=== PATIENT | female | born 1995 | race Caucasian/White ===

== ENCOUNTER 2017-02-26 07:58 | Emergency (ER) | payer BC, MEDICAID ==
--- NOTE | 2017-02-26 08:54 | ER Document Report ---
ED GI/ - General Chief Complaint: Vomiting Stated Complaint: BLOOD SUGAR PROBLEM Time Seen by Provider: 02/26/17 08:53 Mode of Arrival: Ambulatory Information source: Patient Notes: 21 yo Type I female with vomiiting since 0200. Was worried that she was borderline DKA. Dry lips, weak, heart racing, headache, generalized. aching, thirstyl. Nauseated. Uses insulin pump. Accucheck 127 in ER. Irregular menses , 2 weeks ago, nexplanon. TRAVEL OUTSIDE OF THE [place] IN LAST 30 DAYS: No - Related Data Allergies/Adverse Reactions: morphine [Morphine] Allergy (Unknown, Verified 02/26/17 08:07) Influenza Virus Vaccines [Influenza Virus Vaccine] Adverse Reaction (Verified 08:07) Past Medical History - General Information source: Patient - Social History Smoking Status: Never Smoker Frequency of alcohol use: None Drug Abuse: None Lives with: Family Family History: Reviewed & Not Pertinent Patient has suicidal ideation: No Patient has homicidal ideation: No Endocrine Medical History: Reports: Hx Diabetes Mellitus Type 1 Renal/ Medical History: Denies: Hx Peritoneal Dialysis Surgical Hx: Negative - Immunizations Immunizations up to date: Yes Review of Systems - Review of Systems Constitutional: See HPI EENT: No symptoms reported Cardiovascular: No symptoms reported Respiratory: No symptoms reported Gastrointestinal: No symptoms reported Genitourinary: No symptoms reported Female Genitourinary: No symptoms reported Musculoskeletal: No symptoms reported Skin: No symptoms reported Hematologic/Lymphatic: No symptoms reported Neurological/Psychological: No symptoms reported Physical Exam - Vital signs Vitals: Temp Pulse Resp BP Pulse Ox 97.8 F 114 H 18 116/64 98 02/26/17 08:05 02/26/17 08:05 02/26/17 08:05 02/26/17 08:05 02/26/17 08:05 Interpretation: Normal - General General appearance: Alert In distress: None Notes: looks dry - HEENT Head: Normocephalic, Atraumatic Eyes: Normal Conjunctiva: Normal Pupils: PERRL Mucous membranes: Dry Neck: Supple. No: Lymphadenopathy - Respiratory Respiratory status: No respiratory distress Chest status: Nontender Breath sounds: Normal Chest palpation: Normal - Cardiovascular Rhythm: Regular Heart sounds: Normal auscultation Murmur: No - Abdominal Inspection: Normal Distension: No distension Bowel sounds: Normal Tenderness: Nontender. No: Tender Organomegaly: No organomegaly - Back Back: Normal, Nontender. No: Tender - Extremities General upper extremity: Normal inspection, Nontender, Normal color, Normal ROM , Normal temperature General lower extremity: Normal inspection, Nontender, Normal color, Normal ROM , Normal temperature, Normal weight bearing. No: Roshan's sign - Neurological Neuro grossly intact: Yes Cognition: Normal Orientation: AAOx4 [place] Coma Scale Eye Opening: Spontaneous [place] Coma Scale Verbal: Oriented [place] Coma Scale Motor: Obeys Commands Donovan Coma Scale Total: 15 Speech: Normal Motor strength normal: LUE, RUE, LLE, RLE Sensory: Normal - Psychological Associated symptoms: Normal affect, Normal mood - Skin Skin Temperature: Warm Skin Moisture: Dry Skin Color: Normal Skin irregularity: negative: Rash Course - Re-evaluation Re-evalutation: 02/26/17 10:15 Lab work does not show DKA. Patient feels and looks better after 1 L of fluid. - Vital Signs Vital signs: Temp Pulse Resp BP Pulse Ox 98.0 F 114 H 15 100/60 97 02/26/17 11:16 02/26/17 08:05 02/26/17 11:16 02/26/17 11:17 02/26/17 11:16 - Laboratory Result Diagrams: 02/26/17 09:25 02/26/17 09:25 Laboratory results interpreted by me: 02/26/17 02/26/17 02/26/17 08:13 09:25 09:25 Seg Neutrophils % 88.1 H Lymphocytes % 6.8 L Absolute Neutrophils 8.8 H Glucose 130 H POC Glucose 127 H Discharge - Discharge Clinical Impression: daibetes Vomiting Qualifiers: Vomiting type: unspecified Vomiting Intractability: non-intractable Nausea presence: with nausea Qualified Code(s): R11.2 - Nausea with vomiting, unspecified Condition: Good Disposition: HOME, SELF-CARE Instructions: Antinausea Medication ([facility]), Diarrhea, Nonspecific ([facility]), Intravenous (IV) Fluids ([facility]), Vomiting ([facility]) Additional Instructions: plenty of fluids watch your glucose closely today to er if worse Please complete the patient satisfaction survey if you get one, and return it.. If you do not receive a survey, then you can go to the [facility] website, [email or web address] and place your comments about your very good care. Thank you very much. It was a pleasure being your medical provider today. Prescriptions: Ondansetron HCl [Zofran 4 mg Tablet] 1 - 2 tab PO Q4H PRN #30 tablet PRN Reason: Forms: Return to Work
[2017-02-26] MEDS ORDERED: NORMAL SALINE 1000 ML 2,000 ML IV ONE (08:58)
[2017-02-26] MEDS ORDERED: ACETAMINOPHEN 325 MG TABLET PO ONE (09:02)
[2017-02-26] MEDS ORDERED: ONDANSETRON 4 MG TAB.RAPDIS PO ONE (09:02)
[2017-02-26 09:37] LABS: ABSOLUTE LYMPHOCYTES (AUTO) 0.7 10^3/uL (0.5-4.7); ABSOLUTE MONOCYTES (AUTO) 0.5 10^3/uL (0.1-1.4); ABSOLUTE NEUT (AUTO) 8.8 10^3/uL (1.7-8.2); BASOPHILS % (AUTO) 0.3 % (0-2); EOSINOPHILS % (AUTO) 0.1 % (0-6); HEMATOCRIT 39.7 % (36.0-47.0); HEMOGLOBIN 13.8 g/dL (12.0-15.5); HGB HCT DIFFERENCE 1.7; LYMPHOCYTES % (AUTO) 6.8 % (13-45); MEAN CORPUSCULAR HEMOGLOBIN 29.7 pg (27.0-33.4); MEAN CORPUSCULAR HGB CONC 34.8 g/dL (32.0-36.0); MEAN CORPUSCULAR VOLUME 86 fl (80-97); MONOCYTES % (AUTO) 4.7 % (3-13); RED BLOOD COUNT 4.65 10^6/uL (3.72-5.28); RED CELL DISTRIBUTION WIDTH 12.5 % (11.5-14.0); SEGMENTED NEUTROPHILS % (AUTO) 88.1 % (42-78)
[2017-02-26 09:39] LABS: VENOUS BLOOD BASE EXCESS 0.1 mmol/L; VENOUS BLOOD HCO3 25.9 mmol/L (20-32); VENOUS BLOOD PCO2 46.4 mmHg (35-63); VENOUS BLOOD PH 7.37 (7.30-7.42)
[2017-02-26 10:00] LABS: ALANINE AMINOTRANSFERASE 31 U/L (9-52); ALBUMIN 3.9 g/dL (3.5-5.0); ALKALINE PHOSPHATASE 73 U/L (38-126); ANION GAP 12 (5-19); ASPARTATE AMINO TRANSFERASE 22 U/L (14-36); BILIRUBIN,DIRECT 0.3 mg/dL (0.0-0.4); BLOOD UREA NITROGEN 14 mg/dL (7-20); CALCIUM 9.2 mg/dL (8.4-10.2); CARBON DIOXIDE 28 mmol/L (22-30); CHLORIDE 102 mmol/L (98-107); CREATININE RESULT 0.62 mg/dL (0.52-1.25); GLUCOSE 130 mg/dL (75-110); POTASSIUM 3.9 mmol/L (3.6-5.0); SODIUM 141.7 mmol/L (137-145)
[2017-02-26 11:24] VITALS: BP 100/60
== END 2017-02-26 11:24 | disposition home or self-care (01) ==
LOC: ER 07:58
DX: E11.65 Type 2 diabetes mellitus with hyperglycemia (principal); R11.2 Nausea with vomiting, unspecified; R51 Headache; M79.1 Myalgia
CPT/HCPCS: 99284; 36415; 82962; 85025; 80053; 82803; S0119; J7030

== ENCOUNTER 2017-03-09 22:22 | Emergency (ER) | payer BC, MEDICAID ==
[2017-03-09 22:45] VITALS: BP 129/79
--- NOTE | 2017-03-09 23:49 | ER Document Report ---
ED Extremity Problem, Lower <CATIE MTZ - Last Filed: 03/10/17 00:05> - General Mode of Arrival: Wheelchair Information source: Patient, Relative TRAVEL OUTSIDE OF THE [place] IN LAST 30 DAYS: No <BRIANNA THOMPSON - Last Filed: 03/10/17 00:16> - General Chief Complaint: Fall Injury Stated Complaint: FALL INJURY Time Seen by Provider: 03/09/17 23:37 Notes: Patient is a 21 year old female presenting to the emergency department for an injury to her left lower extremity. Patient was walking up some stairs when she slipped because the stairs had green slime on them. Patient's left leg went in between the step and she hit her alvarado on the front of the step. Patient does not have any regular medications. (BRIANNA THOMPSON) - Related Data Allergies/Adverse Reactions: morphine [Morphine] Allergy (Unknown, Verified 03/09/17 22:43) Influenza Virus Vaccines [Influenza Virus Vaccine] Adverse Reaction (Verified 22:43) Past Medical History - General Information source: Patient - Social History Smoking Status: Never Smoker Cigarette use (# per day): No Chew tobacco use (# tins/day): No Smoking Education Provided: No Frequency of alcohol use: None Drug Abuse: None Family History: None Patient has suicidal ideation: No Patient has homicidal ideation: No Endocrine Medical History: Reports: Hx Diabetes Mellitus Type 1 Surgical Hx: Negative - Immunizations Immunizations up to date: Yes <BRIANNA THOMPSON - Last Filed: 03/10/17 00:16> Review of Systems - Review of Systems Constitutional: No symptoms reported EENT: No symptoms reported Cardiovascular: No symptoms reported Respiratory: No symptoms reported Gastrointestinal: No symptoms reported Genitourinary: No symptoms reported Female Genitourinary: No symptoms reported Musculoskeletal: See HPI Skin: See HPI Hematologic/Lymphatic: No symptoms reported Neurological/Psychological: No symptoms reported -: Yes All other systems reviewed and negative <BRIANNA THOMPSON - Last Filed: 03/10/17 00:16> Physical Exam - Extremities General lower extremity: Other - Left anterior lower leg as a area that appears to possibly be contused in the mid pretibial region which is tender without disruption of the skin. <CATIE MTZ - Last Filed: 03/10/17 00:05> - Vital signs Interpretation: Normal - General General appearance: Appears well, Alert In distress: Mild - HEENT Head: Normocephalic, Atraumatic Eyes: Normal Conjunctiva: Normal Pupils: PERRL Mucous membranes: Moist - Respiratory Respiratory status: No respiratory distress - Cardiovascular Rhythm: Regular - Abdominal Distension: No distension - Extremities General upper extremity: Normal inspection, Normal ROM, Normal strength - Neurological Neuro grossly intact: Yes Cognition: Normal Orientation: AAOx4 [place] Coma Scale Eye Opening: Spontaneous [place] Coma Scale Verbal: Oriented [place] Coma Scale Motor: Obeys Commands [place] Coma Scale Total: 15 Speech: Normal Sensory: Normal - Psychological Associated symptoms: Normal affect, Normal mood - Skin Skin Temperature: Warm Skin Moisture: Dry <BRIANNA THOMPSON - Last Filed: 03/10/17 00:16> - Vital signs Vitals: Temp Pulse Resp BP Pulse Ox 97.8 F 82 18 129/79 H 99 03/09/17 22:43 03/09/17 22:43 03/09/17 22:43 03/09/17 22:43 03/09/17 22:43 Course - Diagnostic Test Radiology reviewed: Image reviewed <CATIE MTZ - Last Filed: 03/10/17 00:05> - Vital Signs Vital signs: Temp Pulse Resp BP Pulse Ox 97.8 F 82 18 129/79 H 99 03/09/17 22:43 03/09/17 22:43 03/09/17 22:43 03/09/17 22:43 03/09/17 22:43 Discharge <CATIE MTZ - Last Filed: 03/10/17 00:05> <BRIANNA THOMPSON - Last Filed: 03/10/17 00:16> - Discharge Clinical Impression: Contusion of leg, left Qualifiers: Encounter type: initial encounter Qualified Code(s): S80.12XA - Contusion of left lower leg, initial encounter Additional Instructions: Contusion: Your injury has resulted in a contusion -- a crushing of the deep tissues. No injury to important structures was detected during the physician's exam. Contusions vary in the amount of pain they cause, and in the length of time required for healing. Typically, the area will become bruised, and will remain painful to touch for two or three weeks. However, most patients are back to working and playing within a few days. After the initial period of rest and cold-packs, your symptoms (together with the doctor's recommendations) will determine how rapidly you can get back to full activity. Usually this means "do what feels okay, but don't do things that hurt." If re-examination was recommended, it's important to follow up as instructed. Call the doctor or return any time if pain increases, if swelling becomes severe, if you develop numbness or weakness in an injured extremity, or if any other alarming symptoms occur. Elevate the leg as much as possible. Use ice packs tonight to reduce swelling. Take the pain medication is dispensed a night if needed. Follow-up with your doctor tomorrow if any problems. Referrals: JOSEPHINE CASANOVA NP [Primary Care Provider] - Follow up as needed Scribe Attestation: 03/10/17 00:06 I personally performed the services described in the documentation, reviewed and edited the documentation which was dictated to the scribe in my presence, and it accurately records my words and actions. (CATIE MTZ) Scribe Documentation - Scribe Written by Renaldo:: Renaldo Carreno 03/10/2017 00:16 acting as scribe for :: Kaylah <BRIANNA THOMPSON - Last Filed: 03/10/17 00:16>
--- NOTE | 2017-03-10 00:05 | RADIOLOGY REPORT (SQ) ---
EXAM DESCRIPTION: TIBIA FIBULA LEFT COMPLETED DATE/TIME: 03/09/2017 11:56 pm REASON FOR STUDY: fall injury COMPARISON: None. NUMBER OF VIEWS: Two views. 5 images. TECHNIQUE: Two radiographic images acquired of the left tibia and fibula to include the knee and ank le in at least one projection. LIMITATIONS: None. FINDINGS: MINERALIZATION: Normal. BONES: No acute fracture or dislocation. No worrisome bone lesions. SOFT TISSUES: No obvious swelling or foreign body. OTHER: No other significant finding. IMPRESSION: NEGATIVE STUDY OF THE LEFT TIBIA AND FIBULA. NO RADIOGRAPHIC EVIDENCE OF ACUTE INJURY. TECHNICAL DOCUMENTATION: JOB ID: [id number] [employer]- All Rights Reserved
[2017-03-10] MEDS ORDERED: HYDROCODONE/ACETAMINOPHEN 5-325 MG 6 TAB/DSPK PO PRN (00:06)
== END 2017-03-10 00:21 | disposition home or self-care (01) ==
LOC: ER 22:22
DX: S80.12XA Contusion of left lower leg, initial encounter (principal); M79.605 Pain in left leg; W01.0XXA Fall on same level from slipping, tripping and stumbling without subsequent striking against object, initial encounter
CPT/HCPCS: 99283

== ENCOUNTER 2017-06-02 08:16 | Emergency (ER) | payer BC, MEDICAID ==
[2017-06-02] MEDS ORDERED: PROMETHAZINE HCL 25 MG TABLET PO ONE (08:56)
--- NOTE | 2017-06-02 08:59 | ER Document Report ---
ED General - General Chief Complaint: Weakness Stated Complaint: VOMITING WEAKNESS POSSIBLE DKA Time Seen by Provider: 06/02/17 08:29 Mode of Arrival: Ambulatory Information source: Patient Notes: 21 yr old female hx of diabetes last in [facility] in october presents with complaints of high blood sugar, heart racing , nausea and headache. pt ednies any fevers or chills. pt notes her insulin pump ran out of insulin last night and she slept through the alarm , awoke this morning and noted blood sugar at 450 and gave herself 10 units bolus. TRAVEL OUTSIDE OF THE [place] IN LAST 30 DAYS: No - HPI Onset: Just prior to arrival Onset/Duration: Sudden Quality of pain: Achy Severity: Mild Pain Level: Denies Associated symptoms: Body/muscle aches, Nausea Exacerbated by: Denies Relieved by: Denies Similar symptoms previously: Yes Recently seen / treated by doctor: Yes - Related Data Allergies/Adverse Reactions: morphine [Morphine] Allergy (Unknown, Verified 06/02/17 08:19) cefazolin Allergy (Verified 06/02/17 08:19) Influenza Virus Vaccines [Influenza Virus Vaccine] Adverse Reaction (Verified 08:19) Past Medical History - Social History Smoking Status: Never Smoker Cigarette use (# per day): No Chew tobacco use (# tins/day): No Smoking Education Provided: No Family History: None Endocrine Medical History: Reports: Hx Diabetes Mellitus Type 1 Renal/ Medical History: Denies: Hx Peritoneal Dialysis - Immunizations Immunizations up to date: Yes Review of Systems - Review of Systems Notes: REVIEW OF SYSTEMS: CONSTITUTIONAL : Denies fever, chills, or sweats. Denies recent illness. EENT: Denies eye, ear, throat, or mouth pain or symptoms. Denies nasal or sinus congestion or discharge. Denies throat, tongue, or mouth swelling or difficulty swallowing. CARDIOVASCULAR: Denies chest pain. Denies palpitations or racing or irregular heart beat. Denies ankle edema. RESPIRATORY: Denies cough, cold, or chest congestion. Denies shortness of breath, difficulty breathing, or wheezing. GASTROINTESTINAL: Admits to nausea GENITOURINARY: Denies difficulty urinating, painful urination, burning, frequency, blood in urine, or discharge. FEMALE GENITOURINARY: Denies vaginal bleeding, heavy or abnormal periods, irregular periods. Denies vaginal discharge or odor. MUSCULOSKELETAL: Denies back or neck pain or stiffness. Denies joint pain or swelling. SKIN: Denies rash, lesions or sores. HEMATOLOGIC : Denies easy bruising or bleeding. LYMPHATIC: Denies swollen, enlarged glands. NEUROLOGICAL: Admits to headache PSYCHIATRIC: Denies anxiety or stress. Denies depression, suicidal ideation, or homicidal ideation. ALL OTHER SYSTEMS REVIEWED AND NEGATIVE. PHYSICAL EXAMINATION: GENERAL: Well-appearing, well-nourished and in no acute distress. HEAD: Atraumatic, normocephalic. EYES: Pupils equal round and reactive to light, extraocular movements intact, conjunctiva are normal. ENT: Nares patent, oropharynx clear without exudates. Moist mucous membranes. NECK: Normal range of motion, supple without lymphadenopathy LUNGS: Breath sounds clear to auscultation bilaterally and equal. No wheezes rales or rhonchi. HEART: Regular rate and rhythm without murmurs ABDOMEN: Soft, nontender, nondistended abdomen. No guarding, no rebound. No masses appreciated. Female : deferred Musculoskeletal: Normal range of motion, no pitting or edema. No cyanosis. NEUROLOGICAL: Cranial nerves grossly intact. Normal speech, normal gait. Normal sensory, motor exams PSYCH: Normal mood, normal affect. SKIN: Warm, Dry, normal turgor, no rashes or lesions noted. Dictation was performed using [employer] voice recognition software Physical Exam - Vital signs Vitals: Temp Resp BP 97.9 F 16 113/67 06/02/17 08:24 06/02/17 08:24 06/02/17 08:24 Course - Re-evaluation Re-evalutation: 06/02/17 08:58 Patient's blood sugar reevaluation is 250 here, lab work to rule out DKA has been ordered patient will receive fluids 06/02/17 10:19 pt has no signs of dka, she will be given fluids is otherwise very well appearing in no distress and will dc home with close follow up After performing a Medical Screening Examination, I estimate there is LOW risk for ACUTE CORONARY SYNDROME, PULMONARY EMBOLI, RESPIRATORY FAILURE, SEPSIS OR MENINGITIS, thus I consider the discharge disposition reasonable. I have reevaluated this patient multiple times and no significant life threatening changes are noted. The patient and I have discussed the diagnosis and risks, and we agree with discharging home with close follow-up. We also discussed returning to the Emergency Department immediately if new or worsening symptoms occur. We have discussed the symptoms which are most concerning (e.g., changing or worsening pain, trouble swallowing or breathing, neck stiffness, fever) that necessitate immediate return. - Vital Signs Vital signs: Temp Pulse Resp BP Pulse Ox 97.9 F 109 H 14 111/70 99 06/02/17 08:24 06/02/17 08:25 06/02/17 09:17 06/02/17 09:17 06/02/17 09:17 - Laboratory Result Diagrams: 06/02/17 09:11 06/02/17 09:11 Laboratory results interpreted by me: 06/02/17 06/02/17 06/02/17 08:54 09:11 09:11 WBC 12.1 H Absolute Neutrophils 9.4 H Glucose 264 H POC Glucose 275 H Discharge - Discharge Clinical Impression: Hyperglycemia, Nausea Condition: Stable Disposition: HOME, SELF-CARE Instructions: Hyperglycemia ([facility]) Additional Instructions: Follow up with your physician tomorrow for further care or return to the ED IMMEDIATELY if symptoms worsen or new concerns occur. If you cannot afford to follow up with your primary care physician a list of low cost clinics have been provided at the end of your discharge papers as well.
[2017-06-02] MEDS: NORMAL SALINE 1000 ML 1,000 ML IV PRN ×2 (09:19→10:22)
[2017-06-02 09:30] LABS: ABSOLUTE BASOPHILS # (AUTO) 0.1 10^3/uL (0.0-0.2); ABSOLUTE EOSINOPHILS # (AUTO) 0.1 10^3/uL (0.0-0.6); ABSOLUTE MONOCYTES (AUTO) 0.6 10^3/uL (0.1-1.4); ABSOLUTE NEUT (AUTO) 9.4 10^3/uL (1.7-8.2); BASOPHILS % (AUTO) 0.6 % (0-2); EOSINOPHILS % (AUTO) 0.9 % (0-6); HEMATOCRIT 39.8 % (36.0-47.0); HEMOGLOBIN 13.8 g/dL (12.0-15.5); HGB HCT DIFFERENCE 1.6; LYMPHOCYTES % (AUTO) 16.6 % (13-45); MEAN CORPUSCULAR HEMOGLOBIN 29.4 pg (27.0-33.4); MEAN CORPUSCULAR HGB CONC 34.7 g/dL (32.0-36.0); MEAN CORPUSCULAR VOLUME 85 fl (80-97); MONOCYTES % (AUTO) 4.6 % (3-13); RED BLOOD COUNT 4.69 10^6/uL (3.72-5.28); RED CELL DISTRIBUTION WIDTH 12.8 % (11.5-14.0); SEGMENTED NEUTROPHILS % (AUTO) 77.3 % (42-78); WHITE BLOOD COUNT 12.1 10^3/uL (4.0-10.5)
[2017-06-02 09:43] LABS: VENOUS BLOOD BASE EXCESS -0.8 mmol/L; VENOUS BLOOD HCO3 24.7 mmol/L (20-32); VENOUS BLOOD PCO2 44.2 mmHg (35-63); VENOUS BLOOD PH 7.37 (7.30-7.42)
[2017-06-02 09:54] LABS: ALANINE AMINOTRANSFERASE 31 U/L (9-52); ALBUMIN 4.4 g/dL (3.5-5.0); ALKALINE PHOSPHATASE 73 U/L (38-126); ANION GAP 15 (5-19); ASPARTATE AMINO TRANSFERASE 21 U/L (14-36); BILIRUBIN,DIRECT 0.3 mg/dL (0.0-0.4); BILIRUBIN,TOTAL 0.7 mg/dL (0.2-1.3); BLOOD UREA NITROGEN 18 mg/dL (7-20); CALCIUM 9.6 mg/dL (8.4-10.2); CARBON DIOXIDE 23 mmol/L (22-30); CHLORIDE 101 mmol/L (98-107); GLUCOSE 264 mg/dL (75-110); POTASSIUM 4.1 mmol/L (3.6-5.0); TOTAL PROTEIN 7.4 g/dL (6.3-8.2)
[2017-06-02 10:53] LABS: APPEARANCE,URINE SLIGHTLY-CLOUDY; BILIRUBIN,URINE NEGATIVE (NEGATIVE); GLUCOSE, URINE >=500 mg/dL (NEGATIVE); KETONES,URINE 80 mg/dL (NEGATIVE); LEUKOCYTE ESTERASE,URINE TRACE (NEGATIVE); NITRITE,URINE NEGATIVE (NEGATIVE); PROTEIN,URINE NEGATIVE (NEGATIVE); URINE SPECIFIC GRAVITY 1.024; UROBILINOGEN,URINE NEGATIVE mg/dL (<2.0)
[2017-06-02 11:22] VITALS: BP 102/58
== END 2017-06-02 11:32 | disposition home or self-care (01) ==
LOC: ER 08:16
DX: R53.1 Weakness (principal); R11.10 Vomiting, unspecified; M79.1 Myalgia; Z46.81 Encounter for fitting and adjustment of insulin pump; Z88.6 Allergy status to analgesic agent; Z88.7 Allergy status to serum and vaccine
CPT/HCPCS: 99285; 96360; 96361; 36415; 82962; 85025; 80053; 81001; 82803; J7030

== ENCOUNTER 2017-08-17 13:14 | Emergency (ER) | payer BC, MEDICAID ==
[2017-08-17] MEDS ORDERED: NORMAL SALINE 1000 ML 1,000 ML IV ONE ×2 (14:23→14:36)
--- NOTE | 2017-08-17 14:24 | ER Document Report ---
ED Blood Sugar Problem - General Chief Complaint: High Blood Sugar Stated Complaint: DIZZY,NAUSEA,ELEVATED BLOOD SUGAR Time Seen by Provider: 08/17/17 14:23 Notes: The patient is a 21-year-old female, past medical history type 1 diabetes, presents after her blood sugars over the past 2 day have remained "HI". She has an insulin pump and is having troubles with fluctuations between hyperglycemia and hypoglycemia. Her doctor of naprapathy is in [facility]. Patient changed the location of her insulin pump yesterday. She is having nausea and a dull frontal headache and mild dysuria. Denies fevers, vomiting, abdominal pain, neck stiffness, chest pain, shortness of breath or headache. TRAVEL OUTSIDE OF THE [place] IN LAST 30 DAYS: No - Related Data Allergies/Adverse Reactions: morphine [Morphine] Allergy (Unknown, Verified 08/17/17 13:15) cefazolin Allergy (Verified 08/17/17 13:15) Influenza Virus Vaccines [Influenza Virus Vaccine] Adverse Reaction (Verified 13:15) Past Medical History - General Information source: Patient - Social History Smoking Status: Unknown if Ever Smoked Family History: None Endocrine Medical History: Reports: Hx Diabetes Mellitus Type 1 Renal/ Medical History: Denies: Hx Peritoneal Dialysis - Immunizations Immunizations up to date: Yes Review of Systems - Review of Systems Notes: REVIEW OF SYSTEMS: CONSTITUTIONAL: -fevers, -chills EENT: -eye pain, -difficulty swallowing, -nasal congestion CARDIOVASCULAR: -chest pain, -syncope. RESPIRATORY: -cough, -SOB GASTROINTESTINAL: -abdominal pain, +nausea, -vomiting, -diarrhea GENITOURINARY: +dysuria, -hematuria MUSCULOSKELETAL: -back pain, -neck pain SKIN: -rash or skin lesions. HEMATOLOGIC: -easy bruising or bleeding. LYMPHATIC: -swollen, enlarged glands. NEUROLOGICAL: -altered mental status or loss of consciousness, +headache, - neurologic symptoms PSYCHIATRIC: -anxiety, -depression. ALL OTHER SYSTEMS REVIEWED AND NEGATIVE. Physical Exam - Vital signs Vitals: Temp Pulse Resp BP Pulse Ox 98.3 F 92 16 111/58 L 98 08/17/17 13:19 08/17/17 13:19 08/17/17 13:19 08/17/17 13:19 08/17/17 13:19 - Notes Notes: PHYSICAL EXAMINATION: GENERAL: Well-appearing, well-nourished and in no acute distress. HEAD: Atraumatic, normocephalic. EYES: Pupils equal round and reactive to light, extraocular movements intact, sclera anicteric, conjunctiva are normal. ENT: nares patent, oropharynx clear without exudates. Moist mucous membranes. NECK: Normal range of motion, supple without lymphadenopathy LUNGS: Breath sounds clear to auscultation bilaterally and equal. No wheezes rales or rhonchi. HEART: Regular rate and rhythm without murmurs ABDOMEN: Soft, nontender, normoactive bowel sounds. No guarding, no rebound. No masses appreciated. Insulin pump in right lower quadrant without erythema or signs of infection. EXTREMITIES: Normal range of motion, no pitting or edema. No cyanosis. NEUROLOGICAL: Cranial nerves grossly intact. Normal speech, normal gait. Normal sensory and motor exams. PSYCH: Normal mood, normal affect. SKIN: Warm, Dry, normal turgor, no rashes or lesions noted. Course - Re-evaluation Re-evalutation: Patient appears well. There are no signs of DKA today and she is tolerating fluids by mouth after Zofran. She has evidence of a UTI with some dysuria and will begin Macrobid. Instructed her to follow-up with her doctor of naprapathy for changes in her insulin pump regimen. Given very strict return precautions and she understands. - Vital Signs Vital signs: Temp Pulse Resp BP Pulse Ox 98.3 F 92 19 95/50 L 99 08/17/17 13:19 08/17/17 13:19 08/17/17 17:01 08/17/17 17:01 08/17/17 17:01 - Laboratory Result Diagrams: 08/17/17 14:34 08/17/17 14:34 Laboratory results interpreted by me: 08/17/17 08/17/17 08/17/17 14:27 14:34 14:34 WBC 13.2 H Plt Count 457 H Absolute Neutrophils 10.2 H Chloride 97 L Glucose 384 H POC Glucose 371 H Total Bilirubin 1.5 H Urine Glucose (UA) Urine Ketones Urine Nitrite 08/17/17 14:42 WBC Plt Count Absolute Neutrophils Chloride Glucose POC Glucose Total Bilirubin Urine Glucose (UA) >=500 H Urine Ketones 80 H Urine Nitrite POSITIVE H Discharge - Discharge Clinical Impression: Hyperglycemia due to type 1 diabetes mellitus, Nausea UTI (urinary tract infection) Qualifiers: Urinary tract infection type: site unspecified Hematuria presence: without hematuria Qualified Code(s): N39.0 - Urinary tract infection, site not specified Condition: Stable Disposition: HOME, SELF-CARE Additional Instructions: You are not in DKA today. Take Zofran to help with any nausea and stay hydrated. Take the full course of antibiotics to help with your UTI. Follow- up with your doctor of naprapathy for adjustments in your insulin pump. HYPERGLYCEMIA (HIGH BLOOD SUGAR): You have an abnormally high blood sugar. Not all high blood sugar requires long-term treatment. High blood sugar can be due to medications, , or the stress of illness. (These cases are "borderline diabetes.") If the doctor feels your high blood sugar might resolve with time, you may not require treatment now. It's very important that you follow through, to see if the blood sugar returns to normal levels. Uncontrolled high blood sugar leads to early heart disease, strokes, nerve damage, eye damage, and kidney damage. Call the physician if there is faintness, excess sleepiness, or very rapid breathing. DIABETES: You have an abnormally high blood sugar, suspicious for diabetes. Not all high blood sugar requires long-term treatment. High blood sugar can be due to medications, , or the stress of illness. (These cases are "borderline diabetes.") If the doctor feels your high blood sugar might get better with time, you may not require treatment now. It's very important that you follow through. Uncontrolled high blood sugar leads to early heart disease, strokes, nerve damage, eye damage, and kidney damage. All diabetics should follow a diet designed to control the blood sugar. Overweight diabetics should exercise regularly and lose weight. If this is not sufficient to control the blood sugar, pills or insulin shots are necessary. Younger people who develop diabetes almost always require insulin daily. Home testing of blood sugars or urine sugar is required. Diabetic teaching is available to help you figure insulin doses and monitor the blood sugar. Call the physician if there is faintness, excess sleepiness, or very rapid breathing. If hypoglycemia (LOW blood sugar) develops, symptoms are shakiness, weakness, sweating, and confusion. In this case, you should eat or drink something with sugar at once. INSULIN: Insulin is a natural hormone that lowers blood sugar. Normal blood sugar prevents complications of diabetes. For most diabetics, insulin is the best way to treat the illness. Be sure you know how to measure the insulin correctly. Insulin is measured in "units." There are three types of insulin: N (NPH or long acting), R (regular or short acting), and L (Lente or very long acting). Be sure you are using the right amount of each type. Insulin must be injected into the fat. You can use the abdomen, upper arms , and thighs. Select a different injection site every time. Wipe the site with alcohol before injecting. When first starting insulin, some adjusting of the insulin dose is necessary. Keep a record of each insulin dose and time of injection, and of the blood sugar and the time you test it. Sometimes insulin can make the blood sugar too low. If you become dizzy, sweaty, shaky, or confused, you may be having a hypoglycemic episode. Immediately use juice or some other sweet food. Call the doctor if the symptoms don't go away. FOLLOW-UP CARE: If you have been referred to a physician for follow-up care, call the physician s office for an appointment as you were instructed or within the next two days. If you experience worsening or a significant change in your symptoms, notify the physician immediately or return to the Emergency Department at any time for re-evaluation. URINARY TRACT INFECTION: Your evaluation indicates that you have a urinary tract infection. This is due to germs growing in the bladder. This is a common problem. This infection usually responds quickly to antibiotics. Your antibiotic should be taken exactly as prescribed. Drink plenty of fluids -- three to four quarts a day. Occasionally, a bladder anesthetic will be prescribed to help stop the feeling of urgency until the antibiotic has a chance to clear the infection. This may cause your urine to be dark orange. Certain urine infections require a culture. If the doctor obtained a culture, the results will be back in two days. You should call to see if a change in treatment is needed. A repeat urinalysis after you finish treatment is often recommended. The physician will let you know if further testing is required. Call the doctor if you develop fever, chills, flank pain, inability to urinate, or blood in the urine. ANTIBIOTIC THERAPY: You have been given an antibiotic prescription. It's important that you take all the medication, unless instructed otherwise by your physician. Failure to complete the entire course can result in relapse of your condition. Common side effects of antibiotics include nausea, intestinal cramping, or diarrhea. Women may develop vaginal yeast infections, and babies can get yeast (thrush) in the mouth following the use of antibiotics. Contact your physician if you develop significant side effects from this medication. Allergy to this antibiotic can result in hives, wheezing, faintness, or itching. If symptoms of allergy occur, stop the medication and call the doctor. NITROFURANTOIN (MACRODANTIN, MACROBID): You have received a prescription for nitrofurantoin (Macrodantin). This antibiotic is used for urinary tract infections. Women who are or nursing should notify the physician before taking this medicine. If you have ever had a problem caused by this medication in the past, be sure the physician is aware of it. Common side effects of this medicine include nausea, vomiting, or decreased appetite. Notify your physician if these side effects become severe. Immediately stop this medicine and call the physician if you develop cough , shortness of breath, chest pain, weakness, jaundice (yellow color of the skin and whites of the eyes), or a skin rash. FOLLOW-UP CARE: If you have been referred to a physician for follow-up care, call the physician s office for an appointment as you were instructed or within the next two days. If you experience worsening or a significant change in your symptoms, notify the physician immediately or return to the Emergency Department at any time for re-evaluation. Prescriptions: Metoclopramide HCl [Reglan] 10 mg PO Q8H PRN #12 tablet PRN Reason: Nitrofurantoin/Nitrofuran Mac [Macrobid 100 mg Capsule] 1 tab PO BID #10 capsule Ondansetron [Zofran Odt 4 mg Tablet] 1 - 2 tab PO Q4H PRN #15 tab.rapdis PRN Reason: For Nausea/Vomiting
[2017-08-17] MEDS ORDERED: ONDANSETRON HCL INJ/PF 4 MG/2 ML SDV IV ONE (14:36)
[2017-08-17 14:56] LABS: ABSOLUTE BASOPHILS # (AUTO) 0.1 10^3/uL (0.0-0.2); ABSOLUTE EOSINOPHILS # (AUTO) 0.2 10^3/uL (0.0-0.6); ABSOLUTE LYMPHOCYTES (AUTO) 2.2 10^3/uL (0.5-4.7); ABSOLUTE MONOCYTES (AUTO) 0.6 10^3/uL (0.1-1.4); ABSOLUTE NEUT (AUTO) 10.2 10^3/uL (1.7-8.2); BASOPHILS % (AUTO) 0.5 % (0-2); EOSINOPHILS % (AUTO) 1.1 % (0-6); HEMATOCRIT 40.3 % (36.0-47.0); HEMOGLOBIN 13.6 g/dL (12.0-15.5); LYMPHOCYTES % (AUTO) 16.5 % (13-45); MEAN CORPUSCULAR HEMOGLOBIN 29.3 pg (27.0-33.4); MEAN CORPUSCULAR HGB CONC 33.8 g/dL (32.0-36.0); MEAN CORPUSCULAR VOLUME 87 fl (80-97); MONOCYTES % (AUTO) 4.7 % (3-13); PLATELET COUNT 457 10^3/uL (150-450); RED BLOOD COUNT 4.66 10^6/uL (3.72-5.28); SEGMENTED NEUTROPHILS % (AUTO) 77.2 % (42-78); TOTAL CELLS COUNTED % (AUTO) 100 %; WHITE BLOOD COUNT 13.2 10^3/uL (4.0-10.5)
[2017-08-17 15:04] LABS: APPEARANCE,URINE CLEAR; BILIRUBIN,URINE NEGATIVE (NEGATIVE); COLOR,URINE STRAW; GLUCOSE, URINE >=500 mg/dL (NEGATIVE); KETONES,URINE 80 mg/dL (NEGATIVE); LEUKOCYTE ESTERASE,URINE NEGATIVE (NEGATIVE); NITRITE,URINE POSITIVE (NEGATIVE); PROTEIN,URINE NEGATIVE (NEGATIVE); URINE SPECIFIC GRAVITY 1.031; UROBILINOGEN,URINE NEGATIVE mg/dL (<2.0)
[2017-08-17] MEDS ORDERED: ACETAMINOPHEN 325 MG TABLET PO ONE (15:11)
[2017-08-17] MEDS ORDERED: NAPROXEN 250 MG TABLET PO ONE (15:11)
[2017-08-17] MEDS ORDERED: NITROFURANTOIN MONOHYD/M-CRYST 100 MG CAPSULE PO ONE (15:11)
[2017-08-17 15:14] LABS: ALANINE AMINOTRANSFERASE 31 U/L (9-52); ALBUMIN 4.9 g/dL (3.5-5.0); ALKALINE PHOSPHATASE 103 U/L (38-126); ASPARTATE AMINO TRANSFERASE 21 U/L (14-36); BILIRUBIN,DIRECT 0.3 mg/dL (0.0-0.4); BILIRUBIN,TOTAL 1.5 mg/dL (0.2-1.3); BLOOD UREA NITROGEN 14 mg/dL (7-20); CALCIUM 9.9 mg/dL (8.4-10.2); CHLORIDE 97 mmol/L (98-107); GLUCOSE 384 mg/dL (75-110); POTASSIUM 4.7 mmol/L (3.6-5.0); SODIUM 137.5 mmol/L (137-145); TOTAL PROTEIN 7.6 g/dL (6.3-8.2)
[2017-08-17 15:23] LABS: CARBON DIOXIDE 22 mmol/L (22-30); VENOUS BLOOD BASE EXCESS -2.5 mmol/L; VENOUS BLOOD PCO2 48.4 mmHg (35-63); VENOUS BLOOD PH 7.31 (7.30-7.42)
[2017-08-17 15:27] LABS: ANION GAP 19 (5-19)
[2017-08-17] MEDS ORDERED: METOCLOPRAMIDE HCL 10 MG TABLET PO ONE (17:09)
[2017-08-17 17:19] VITALS: BP 106/58
== END 2017-08-17 17:19 | disposition home or self-care (01) ==
LOC: ER 13:14
DX: E10.65 Type 1 diabetes mellitus with hyperglycemia (principal); Z96.41 Presence of insulin pump (external) (internal); N39.0 Urinary tract infection, site not specified; R42 Dizziness and giddiness; R11.0 Nausea; Z88.6 Allergy status to analgesic agent; Z88.7 Allergy status to serum and vaccine
CPT/HCPCS: 99283; 96361; 96374; 36415; 82962; 85025; 81025; 80053; 81001; 82803; J2405; J7030; J8499

== ENCOUNTER 2018-06-18 12:27 | Emergency (ER) | payer BC, MEDICAID ==
[2018-06-18] MEDS ORDERED: NORMAL SALINE 1000 ML 1,000 ML IV ONE (13:01)
[2018-06-18] MEDS ORDERED: ONDANSETRON HCL INJ/PF 4 MG/2 ML SDV IV ONE (13:01)
--- NOTE | 2018-06-18 13:05 | ER Document Report ---
ED Medical Screen (RME) - General Chief Complaint: High Blood Sugar Stated Complaint: BLOOD SUGAR ISSUES Time Seen by Provider: 06/18/18 13:00 Notes: Patient is an insulin-dependent diabetic with an insulin pump who noted her blood sugar was 375 while at work. She went home to try to adjust her insulin pump, but was unable to get it working so she came here. Here in the emergency department, her blood sugars 483 by Accu-Chek. She is nauseated but not vomiting. No fevers. Some abdominal pains. TRAVEL OUTSIDE OF THE [place] IN LAST 30 DAYS: No - Related Data Allergies/Adverse Reactions: morphine [Morphine] Allergy (Unknown, Verified 06/18/18 12:28) cefazolin Allergy (Verified 06/18/18 12:28) Influenza Virus Vaccines [Influenza Virus Vaccine] Adverse Reaction (Verified 06/18/18 12:28) Past Medical History - Social History Chew tobacco use (# tins/day): No Frequency of alcohol use: Occasional Drug Abuse: None Endocrine Medical History: Reports: Hx Diabetes Mellitus Type 1 Renal/ Medical History: Denies: Hx Peritoneal Dialysis - Immunizations Immunizations up to date: Yes Physical Exam - Vital signs Vitals: Temp Pulse Resp BP Pulse Ox 98.2 F 66 18 108/61 100 06/18/18 12:47 06/18/18 12:47 06/18/18 12:47 06/18/18 12:47 06/18/18 12:47 Course - Vital Signs Vital signs: Temp Pulse Resp BP Pulse Ox 98.2 F 66 18 108/61 100 06/18/18 12:47 06/18/18 12:47 06/18/18 12:47 06/18/18 12:47 06/18/18 12:47
[2018-06-18 13:35] LABS: ABSOLUTE BASOPHILS # (AUTO) 0.1 10^3/uL (0.0-0.2); ABSOLUTE EOSINOPHILS # (AUTO) 0.3 10^3/uL (0.0-0.6); ABSOLUTE LYMPHOCYTES (AUTO) 2.3 10^3/uL (0.5-4.7); ABSOLUTE MONOCYTES (AUTO) 0.6 10^3/uL (0.1-1.4); BASOPHILS % (AUTO) 0.7 % (0-2); HEMATOCRIT 40.2 % (36.0-47.0); HEMOGLOBIN 13.8 g/dL (12.0-15.5); MEAN CORPUSCULAR HEMOGLOBIN 30.7 pg (27.0-33.4); MEAN CORPUSCULAR HGB CONC 34.5 g/dL (32.0-36.0); MEAN CORPUSCULAR VOLUME 89 fl (80-97); MONOCYTES % (AUTO) 5.5 % (3-13); PLATELET COUNT 422 10^3/uL (150-450); RED BLOOD COUNT 4.51 10^6/uL (3.72-5.28); RED CELL DISTRIBUTION WIDTH 12.8 % (11.5-14.0); SEGMENTED NEUTROPHILS % (AUTO) 70.8 % (42-78); TOTAL CELLS COUNTED % (AUTO) 100 %; WHITE BLOOD COUNT 11.3 10^3/uL (4.0-10.5)
[2018-06-18 13:58] LABS: ALANINE AMINOTRANSFERASE 17 U/L (9-52); ALBUMIN 4.3 g/dL (3.5-5.0); ALKALINE PHOSPHATASE 98 U/L (38-126); ANION GAP 11 (5-19); ASPARTATE AMINO TRANSFERASE 15 U/L (14-36); BILIRUBIN,DIRECT 0.2 mg/dL (0.0-0.4); BILIRUBIN,TOTAL 0.4 mg/dL (0.2-1.3); BLOOD UREA NITROGEN 7 mg/dL (7-20); CALCIUM 9.4 mg/dL (8.4-10.2); CARBON DIOXIDE 25 mmol/L (22-30); CHLORIDE 99 mmol/L (98-107); LIPASE 69.9 U/L (23-300); POTASSIUM 4.6 mmol/L (3.6-5.0); SODIUM 134.7 mmol/L (137-145); TOTAL PROTEIN 7.3 g/dL (6.3-8.2)
[2018-06-18 14:09] LABS: APPEARANCE,URINE CLEAR; BILIRUBIN,URINE NEGATIVE (NEGATIVE); COLOR,URINE COLORLESS; GLUCOSE, URINE >=500 mg/dL (NEGATIVE); KETONES,URINE 20 mg/dL (NEGATIVE); LEUKOCYTE ESTERASE,URINE NEGATIVE (NEGATIVE); NITRITE,URINE NEGATIVE (NEGATIVE); PROTEIN,URINE NEGATIVE (NEGATIVE); URINE SPECIFIC GRAVITY 1.029; UROBILINOGEN,URINE NEGATIVE mg/dL (<2.0)
[2018-06-18 14:11] LABS: GLUCOSE 523 mg/dL (75-110)
[2018-06-18] MEDS ORDERED: INSULIN REG, HUMAN 100 UNIT/ML 3 ML VIAL (PYX) IV ONE (14:15)
--- NOTE | 2018-06-18 14:21 | ER Document Report ---
ED General - General Chief Complaint: High Blood Sugar Stated Complaint: BLOOD SUGAR ISSUES Time Seen by Provider: 06/18/18 13:00 Information source: Patient Notes: Patient is a 22-year-old insulin-dependent diabetic with an insulin pump who states today around noon her alarm started "beeping" stating that there was a blockage. Patient states her glucose was around 300 and then returned home to try to find a possible another access site but just came to the emergency department instead. Accu-Chek upfront as recorded. Patient states some mild epigastric "queasiness". She denies any recent illnesses such as runny nose, congestion, sore throat, fever, cough, abdominal pain, pelvic pain, or dysuria. Patient is followed by Dr. Reny James, and mh teacher as well as primary care physician Dr. Jiménez. TRAVEL OUTSIDE OF THE [place] IN LAST 30 DAYS: No - HPI Onset: Just prior to arrival Onset/Duration: Gradual Quality of pain: No pain Severity: Moderate Pain Level: Denies Associated symptoms: Other - See above Exacerbated by: Denies Relieved by: Denies Similar symptoms previously: No Recently seen / treated by doctor: No - Related Data Allergies/Adverse Reactions: morphine [Morphine] Allergy (Unknown, Verified 06/18/18 12:28) cefazolin Allergy (Verified 06/18/18 12:28) Influenza Virus Vaccines [Influenza Virus Vaccine] Adverse Reaction (Verified 06/18/18 12:28) Past Medical History - Social History Smoking Status: Never Smoker Chew tobacco use (# tins/day): No Frequency of alcohol use: Occasional Drug Abuse: None Family History: None Patient has suicidal ideation: No Patient has homicidal ideation: No Endocrine Medical History: Reports: Hx Diabetes Mellitus Type 1 Renal/ Medical History: Denies: Hx Peritoneal Dialysis - Immunizations Immunizations up to date: Yes Review of Systems - Review of Systems Constitutional: denies: Fever EENT: denies: Eye discharge, Nose discharge Cardiovascular: denies: Chest pain, Palpitations Respiratory: denies: Short of breath Gastrointestinal: denies: Vomiting Genitourinary: denies: Dysuria Musculoskeletal: denies: Leg swelling Skin: Other - no hives. denies: Rash Neurological/Psychological: Other - no slurred speech -: Yes All other systems reviewed and negative Physical Exam - Vital signs Vitals: Temp Pulse Resp BP Pulse Ox 98.2 F 66 18 108/61 100 06/18/18 12:47 06/18/18 12:47 06/18/18 12:47 06/18/18 12:47 06/18/18 12:47 Interpretation: Normal Notes: Reviewed vital signs and nursing note as charted by RN. CONSTITUTIONAL: Alert and oriented and responds appropriately to questions. Well-appearing; well-nourished HEAD: Normocephalic; atraumatic EYES: PERRL; Conjunctivae clear, sclerae non-icteric ENT: Normal nose; no rhinorrhea; moist mucous membranes; pharynx without lesions noted NECK: Supple without meningismus; non-tender; no cervical lymphadenopathy, no masses CARD: Regular rate and rhythm; no murmurs; symmetric distal pulses RESP: Normal chest excursion without splinting or tachypnea; breath sounds clear and equal bilaterally; no wheezes, no rhonchi, no rales ABD/GI: Normal bowel sounds; non-distended; soft, non-tender BACK: The back appears normal and is non-tender to palpation EXT: Normal ROM in all joints; non-tender to palpation; no edema SKIN: No acute lesions noted NEURO: CN 2-12 intact; 5/5 bilateral upper and lower extremity strength with sensation intact to light touch PSYCH: The patient's mood and manner are appropriate. Grooming and personal hygiene are appropriate. Course - Re-evaluation Re-evalutation: Given the above history and physical examination we will place the patient on the monitor and obtain basic labs, electrolytes, and a venous blood gas. We will provide a liter of fluid. I will attempt to call Dr. James. 06/18/18 14:20 Labs as recorded. Anion gap is 11. 10 IV insulin has been ordered. A liter of fluid is infusing. Vital signs are stable. I was able to call and directly speak to Dr. James. She states that the patient should call the 1 800 number on the back of the pump and they will overnight her new pump. She states in the interim the patient can provide a dose of subcu insulin every 4 hours with frequent Accu-Cheks. The patient states she knows how to do this and is very familiar with a sliding scale type of insulin management. Dr. James states after the glucose is trending downward, she would provide 6 units of subcu insulin after the 10 order provided. She does not believe that the patient needs a certain glucose level prior to discharge. She states that the patient can call and follow-up with their office as well. Patient is very comfortable with this plan. She currently has no abdominal discomfort, nausea or vomiting. 06/18/18 15:18 VBG and repeat Accu-Chek as recorded. The patient has called the 1 800-number on the back of the insulin pump. We have provided the 6 units of subcu insulin at discharge as instructed by the mh teacher. Patient will be discharged home with strict return precautions, follow-up with the mh teacher, with a new insulin pump being sent to her. Patient again states that she understands how to provide herself the subcu insulin as instructed by the mh teacher. She has the insulin at home. - Vital Signs Vital signs: Temp Pulse Resp BP Pulse Ox 98.2 F 66 18 108/61 100 06/18/18 12:47 06/18/18 12:47 06/18/18 12:47 06/18/18 12:47 06/18/18 12:47 - Laboratory Result Diagrams: 06/18/18 13:10 06/18/18 13:10 Laboratory results interpreted by me: 06/18/18 06/18/18 06/18/18 12:51 13:10 13:10 WBC 11.3 H Sodium 134.7 L Glucose 523 H* POC Glucose 483 H* Urine Glucose (UA) Urine Ketones 06/18/18 06/18/18 13:10 14:01 WBC Sodium Glucose POC Glucose 387 H Urine Glucose (UA) >=500 H Urine Ketones 20 H Discharge - Discharge Clinical Impression: Hyperglycemia due to type 1 diabetes mellitus Complication of insulin pump Qualifiers: Device complication type: mechanical Mechanical complication type: mechanical breakdown Encounter type: initial encounter Qualified Code(s): T85.614A - Breakdown (mechanical) of insulin pump, initial encounter Condition: Good Disposition: HOME, SELF-CARE Additional Instructions: Come back immediately for any persistently elevated blood sugars, fevers, vomiting, any return of abdominal discomfort, or any other acute problems. Please follow-up with your primary care physician and mh teacher as we have discussed and please keep a very close watch with frequent Accu-Cheks with your sliding scale subcutaneous insulin injections.
[2018-06-18 14:30] LABS: VENOUS BLOOD BASE EXCESS -2.5 mmol/L; VENOUS BLOOD PCO2 47.9 mmHg (35-63); VENOUS BLOOD PH 7.32 (7.30-7.42)
[2018-06-18] MEDS ORDERED: INSULIN REG, HUMAN 100 UNIT/ML 3 ML VIAL (PYX) SUBCUT ONE (15:20)
[2018-06-18 16:07] VITALS: BP 95/59
== END 2018-06-18 16:20 | disposition home or self-care (01) ==
LOC: ER 12:27
DX: T85.614A Breakdown (mechanical) of insulin pump, initial encounter (principal); E10.65 Type 1 diabetes mellitus with hyperglycemia; Z96.41 Presence of insulin pump (external) (internal); R19.8 Other specified symptoms and signs involving the digestive system and abdomen; Z88.5 Allergy status to narcotic agent; Z88.1 Allergy status to other antibiotic agents
CPT/HCPCS: 99285; 96361; 96374; 36415; 82962; 83690; 84703; 85025; 80053; 81001; 82803; J1815; J2405; J7030

== ENCOUNTER 2019-04-26 11:29 | Emergency (ER) | payer BC ==
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
--- NOTE | 2019-04-26 13:38 | RADIOLOGY REPORT (SQ) ---
EXAM DESCRIPTION: HAND RIGHT 3 VIEWS COMPLETED DATE/TIME: 04/26/2019 1:23 pm REASON FOR STUDY: Pain injury hand and wrist COMPARISON: None. EXAM PARAMETERS: NUMBER OF VIEWS: Three views. TECHNIQUE: AP, lateral and oblique radiographic images acquired of the right hand. LIMITATIONS: None. FINDINGS: MINERALIZATION: Normal. BONES: No acute fracture or dislocation. No worrisome bone lesions. JOINTS: No effusions. SOFT TISSUES: No soft tissue swelling. No foreign body. OTHER: No other significant finding. IMPRESSION: NEGATIVE STUDY OF THE RIGHT HAND. NO RADIOGRAPHIC EVIDENCE OF ACUTE INJURY. TECHNICAL DOCUMENTATION: JOB ID: [id number] [employer]- All Rights Reserved Reading location - IP/workstation name: [email or web address]
--- NOTE | 2019-04-26 13:39 | RADIOLOGY REPORT (SQ) ---
EXAM DESCRIPTION: WRIST RIGHT 3 VIEWS COMPLETED DATE/TIME: 04/26/2019 1:23 pm REASON FOR STUDY: Pain injury hand and wrist COMPARISON: None. NUMBER OF VIEWS: Three views. TECHNIQUE: AP, lateral, and oblique radiographic images acquired of the right wrist. LIMITATIONS: None. FINDINGS: MINERALIZATION: Normal. BONES: No acute fracture or dislocation. No worrisome bone lesions. Normal alignment. SOFT TISSUES: No soft tissue swelling. No foreign body. OTHER: No other significant finding. IMPRESSION: NEGATIVE STUDY OF THE RIGHT WRIST. NO RADIOGRAPHIC EVIDENCE OF ACUTE INJURY. TECHNICAL DOCUMENTATION: JOB ID: [id number] [employer]- All Rights Reserved Reading location - IP/workstation name: [email or web address]
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
[2019-04-26 15:32] VITALS: BP 110/72
== END 2019-04-26 15:14 | disposition home or self-care (01) ==
LOC: ER 11:29
DX: S69.91XA Unspecified injury of right wrist, hand and finger(s), initial encounter (principal); W22.8XXA Striking against or struck by other objects, initial encounter; E10.9 Type 1 diabetes mellitus without complications
CPT/HCPCS: 99283

== ENCOUNTER → 2019-07-27 | Outpatient (CLI) | payer BC | LOC: OD 11:30 | PROVIDERS: ATTEND Otolaryngology | DX: J30.9 Allergic rhinitis, unspecified (principal) | CPT/HCPCS: 36415; 82785; 86003 ==

== ENCOUNTER → 2020-03-01 | Outpatient (CLI) | payer MEDICAID ==
--- NOTE | 2020-03-01 13:57 | RADIOLOGY REPORT (SQ) ---
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 TECHNIQUE: Dynamic and static sheridan-scale images acquired of the thyroid gland. Selected additional c olor/power Doppler images recorded. All images stored to PACS. LIMITATIONS: None. FINDINGS: RIGHT LOBE: Normal size, 4.4 cm. Heterogeneous echotexture. No cystic or solid masses. LEFT LOBE: Normal size, 4.2 cm. Heterogeneous echotexture. No cystic or solid masses. ISTHMUS: Normal size, 4 mm. Homogeneous echotexture. No cystic or solid masses. OTHER: No other significant finding. IMPRESSION: The thyroid gland is normal in size and heterogeneous in echotexture. No definable mass es are seen. TECHNICAL DOCUMENTATION: JOB ID: [id number] 2010 [employer]- All Rights Reserved Reading location - IP/workstation name: [email or web address]
== END ==
LOC: RAD 12:43
PROVIDERS: ATTEND Otolaryngology
DX: E04.1 Nontoxic single thyroid nodule (principal)
CPT/HCPCS: 76536